=== PATIENT | male | born 1970 | race Caucasian/White ===

== ENCOUNTER 2019-07-25 05:50 | Inpatient (IN) | payer BC ==
[~2019-07-25] VITALS: Ht 182.9 cm; Wt 126.8 kg
[2019-07-25 05:53] VITALS: Ht 182.9 cm; Wt 126.8 kg
[2019-07-25 06:38] LABS: BASOPHIL % 0.6 % (0-2); CALCIUM 8.7 mg/dL (8.5-10.1); CARBON DIOXIDE 22.8 mmol/L (21-32); CHLORIDE SERUM 103 mmol/L (98-107); GFR1 > 60 mL/min; GLUCOSE SERUM 141 mg/dL (74-106); PLATELET COUNT 223 x10^3mcL (130-400); POTASSIUM SERUM 4.1 mmol/L (3.5-5.1); RED CELL DISTRIBUTION WIDTH 12.9 % (11.5-14.5); SODIUM SERUM 138 mmol/L (136-145)
[2019-07-25 06:43] LABS: ALBUMIN 3.8 g/dL (3.4-5.0); ALKALINE PHOSPHATASE 66 U/L (46-116); ALT/SGPT 50 U/L (16-63); AST/SGOT 19 U/L (15-37); BILIRUBIN TOTAL 0.3 mg/dL (0.20-1.00); TOTAL PROTEIN, SERUM 7.1 g/dL (6.4-8.2)
[2019-07-25 09:24] VITALS: BP 132/81
[2019-07-25 10:06] LABS: microscopic required? NO
[2019-07-25 10:20] LABS: UA SPECIFIC GRAVITY <=1.005 (1.005-1.035); urine erythrocyte NEGATIVE (NEGATIVE)
[2019-07-25 12:33] VITALS: BP 149/90
[2019-07-25 17:31] VITALS: BP 138/81
[2019-07-25 20:40] VITALS: BP 122/79
[2019-07-26 05:31] VITALS: BP 145/89
[2019-07-26 06:48] LABS: BASOPHIL % 0.6 % (0-2); PLATELET COUNT 220 x10^3mcL (130-400); RED CELL DISTRIBUTION WIDTH 13.1 % (11.5-14.5)
[2019-07-26 07:36] LABS: CHLORIDE SERUM 102 mmol/L (98-107); CREATININE SERUM 0.9 mg/dL (0.7-1.3); GFR1 > 60 mL/min; GLUCOSE SERUM 130 mg/dL (74-106); POTASSIUM SERUM 4.4 mmol/L (3.5-5.1); SODIUM SERUM 136 mmol/L (136-145)
[2019-07-26] MEDS ORDERED: LIPI20 PO (08:16)
[2019-07-26] MEDS ORDERED: ZES10 PO (08:17)
[2019-07-26] MEDS ORDERED: GLU500 PO (08:17)
[2019-07-26 08:45] VITALS: BP 147/62
[2019-07-26 11:41] VITALS: BP 147/62
[2019-07-26 11:54] VITALS: BP 128/88
[2019-07-29] MEDS ORDERED: METFORMIN HCL500 M4 PO (17:13)
[2019-07-29] MEDS ORDERED: ZESTRIL10 MG PO (17:13)
[2019-07-29] MEDS ORDERED: LIPITOR20 MG PO (17:13)
== END 2019-07-26 14:05 | disposition home or self-care (01) | DRG 313 ==
LOC: ED 05:50 → DU 07:11 → MU 16:09 → DU 18:13
PROVIDERS: Emergency Medicine; ADMIT Family Medicine
DX: R07.89 Other chest pain (principal); I10 Essential (primary) hypertension; E11.9 Type 2 diabetes mellitus without complications; F12.10 Cannabis abuse, uncomplicated; F17.210 Nicotine dependence, cigarettes, uncomplicated; Z79.899 Other long term (current) drug therapy; Z79.84 Long term (current) use of oral hypoglycemic drugs
CPT/HCPCS: 82962; G0378; Q0092